=== PATIENT | female | born 1945 | race Caucasian/White ===

== ENCOUNTER → 2017-07-01 | Outpatient (CLI) | payer OTHER, MEDICARE ==
[2017-07-01 09:17] LABS: ALBUMIN 3.9 gm/dl (3.4-5.0); ALT/SGPT 29 U/L (12-78); BLOOD UREA NITROGEN 17 mg/dl (7-18); CARBON DIOXIDE 26 mmol/L (21-32); CHOLESTEROL 158 mg/dl (0-200); CREATININE 0.67 mg/dl (0.60-1.20); GLUCOSE 86 mg/dl (70-99); POTASSIUM 4.6 mmol/L (3.5-5.1); SODIUM 135 mmol/L (136-145)
[2017-07-01 09:27] LABS: MEAN CORPUSCULAR HGB CONC 35.3 g/dl (32-36)
[2017-07-01 09:28] LABS: ALKALINE PHOSPHATASE 102 U/L (45-117); AST/SGOT 26 U/L (15-37); LDL CHOLESTEROL CALCULATED 73 mg/dl; TOTAL PROTEIN 7.3 gm/dl (6.4-8.2)
[2017-07-01 09:30] LABS: HEMATOCRIT 38.8 % (37-47); HEMOGLOBIN 13.7 g/dL (12.0-16.0); MEAN CELL VOLUME 92.8 fL (80-100); MEAN CORPUSCULAR HEMOGLOBIN 32.8 pg (25-34); RED CELL DISTRIBUTION WIDTH CV 12.4 % (11.5-14.5); WHITE BLOOD COUNT 4.28 K/uL (4.8-10.8)
== END | disposition home or self-care (01) ==
LOC: C.LABFOXMH 08:36
PROVIDERS: ATTEND Internal Medicine
DX: I10 Essential (primary) hypertension (principal); E03.9 Hypothyroidism, unspecified

== ENCOUNTER → 2017-11-01 | Outpatient (CLI) | payer OTHER, MEDICARE ==
[2017-11-01 09:10] LABS: BLOOD UREA NITROGEN 16 mg/dl (7-18); CALCIUM 8.9 mg/dl (8.5-10.1); CARBON DIOXIDE 28 mmol/L (21-32); CREATININE 0.84 mg/dl (0.60-1.20); GLUCOSE 93 mg/dl (70-99); POTASSIUM 4.1 mmol/L (3.5-5.1); SODIUM 136 mmol/L (136-145)
== END ==
LOC: C.LABFOXMH 07:33
PROVIDERS: ATTEND Internal Medicine Hospice and Palliative Medicine
DX: E87.1 Hypo-osmolality and hyponatremia (principal); M85.80 Other specified disorders of bone density and structure, unspecified site

== ENCOUNTER → 2018-02-05 | Outpatient (CLI) | payer OTHER, MEDICARE ==
--- NOTE | 2018-02-05 11:28 | DIAGNOSTIC IMAGING REPORT ---
PET/CT CLINICAL HISTORY: Right breast carcinoma. TECHNIQUE: A PET/CT was performed from the skull base through the upper thighs following intravenous injection of 11.93 mCi of F 18 FDG IV. The injection was performed at 9:08 AM on February 05, 2018 and imaging began at 10:18 AM on February 05, 2018. Unenhanced CT was performed for attenuation correction purposes and anatomic localization. COMPARISON STUDY: None. FINDINGS: Head and neck: No cervical lymphadenopathy is noted. There is a small focus of moderate FDG uptake projecting over the left arytenoid cartilage within the left colonic/supraglottic region shown on axial image 31. No corresponding abnormality is identified by CT. No additional foci of abnormal FDG uptake are identified within the neck. Chest: No monica FDG uptake is identified within the chest. There are no enlarged thoracic lymph nodes. Note is made of mild FDG uptake within the upper inner quadrant of the right breast at the 2:00 position shown on axial image 75 with corresponding biopsy clip shown by CT. This represents the primary lesion. No additional foci of abnormal FDG uptake are identified on this examination. Lungs are suboptimally assessed due to respiratory motion. A 4 mm right upper lobe nodule is shown on image 46. There may be a few tiny subpleural nodules within the lungs. These are too small to evaluate by PET imaging but are likely benign. A calcified granuloma within the right lower lobe is noted. Abdomen and Pelvis: Note is made of a 2.9 cm hepatic cyst. No abnormal FDG uptake is identified within the abdomen or the pelvis. There is no abdominal or pelvic lymphadenopathy. A water attenuation 2.5 cm right adnexal lesion favors a cyst. A few calcified uterine fibroids are noted. Musculoskeletal: No suspicious skeletal uptake is identified. IMPRESSION: 1. No convincing evidence for metastatic disease. 2. Mild focal FDG uptake within the upper inner quadrant of the right breast which represents the biopsy-proven breast cancer. 3. Small focus of moderate FDG uptake projecting of the left arytenoid cartilage without corresponding CT abnormality. This is indeterminate although probably benign. ENT consultation for consideration for direct visualization might be considered. 4. 4 mm right upper lobe nodule which is likely benign. A follow-up chest CT in 6 months to ensure stability is recommended. 5. 2.5 cm water attenuation right adnexal lesion without FDG uptake which favors an ovarian cyst. Electronically signed by: Deric Stone M.D. 02/05/2018 11:27 AM Dictated Date/Time: 02/05/2018 11:10 AM
== END | disposition home or self-care (01) ==
LOC: C.PET 08:49
PROVIDERS: ATTEND Internal Medicine Hematology & Oncology
DX: C50.111 Malignant neoplasm of central portion of right female breast (principal)